=== PATIENT | male | born 1990 | race Asian ===

== ENCOUNTER 2018-03-16 16:28 | Emergency (ER) | payer SELFPAY ==
[~2018-03-16] VITALS: Ht 182.9 cm; Wt 91.6 kg
[2018-03-16 16:38] VITALS: BP 148/73; Ht 182.9 cm; Wt 91.6 kg
== END 2018-03-16 18:00 | disposition home or self-care (01) ==
LOC: ED 16:28
DX: S06.0X1A Concussion with loss of consciousness of 30 minutes or less, initial encounter (principal); W50.0XXA Accidental hit or strike by another person, initial encounter; Y92.009 Unspecified place in unspecified non-institutional (private) residence as the place of occurrence of the external cause

== ENCOUNTER 2018-03-26 10:40 | Emergency (ER) | payer MEDICAID ==
[~2018-03-26] VITALS: Ht 185.4 cm; Wt 99.1 kg
[2018-03-26 10:47] VITALS: Ht 185.4 cm; Wt 99.1 kg
[2018-03-26 13:07] VITALS: BP 127/81
== END 2018-03-26 13:07 | disposition home or self-care (01) ==
LOC: ED 10:40
DX: G43.909 Migraine, unspecified, not intractable, without status migrainosus (principal); R42 Dizziness and giddiness; H53.8 Other visual disturbances; R47.02 Dysphasia; Z87.820 Personal history of traumatic brain injury